=== PATIENT | male | born 2000 | race Caucasian/White ===

== ENCOUNTER 2025-01-26 12:39 | Emergency (ER) | payer OTHER, SELFPAY ==
--- NOTE | ~2025-01-26 | XR_ITS ---
XR foot LT min 3V 01/26/2025 13:00 INDICATION: Left foot pain after injury PROCEDURE: 4 views left foot COMPARISON: No prior studies for comparison. FINDINGS: Fracture, dislocation or subluxation is not identified. Lisfranc joint intact. The soft tis sues appear within normal limits. No foreign bodies are identified. IMPRESSION: 1: NO ACUTE BONE OR JOINT ABNORMALITY IDENTIFIED. Reviewed, dictated and finalized at location A.
[2025-01-26 12:51] VITALS: BP 138/81; PULSE 70; RESP 16; TEMP 36.7; O2SAT 100
--- NOTE | 2025-01-26 13:00 | ED_ITS ---
HPI - Extremity Injury (Lower) General Chief Complaint: Extremity Injury, Lower Stated Complaint: L Foot Pain Time Seen by Provider: 01/26/25 12:55 Source: patient Mode of arrival: ambulatory Limitations: no limitations History of Present Illness HPI Narrative: Gaudencio is a 24-year-old male patient presenting to the clinic today with complaints of left foot/great toe pain that occurred on Wednesday of this week. R eports he dropped a 50 lb weight on his left great toe. Is having bruising and swelling to the base of the great toe. Pain with extension of the toe and when bearing weight. Has been taking ibuprofen for pain. Related Data Home Medications ?Medication ?Instructions ?Recorded ?Confirmed ?Last Taken ?Type No Home Medications 01/26/25 01/26/25 Unknown History Allergies Allergy/AdvReac Type Severity Reaction Status Date / Time No Known Allergies Allergy Verified 01/26/25 12:52 Review of Systems Review of Systems: Pertinent positives per HPI. Patient denies any fever, chills, rash, headache, visual changes, dizziness, cough, runny nose, sore throat, shortness of breath, chest pain, palpitations, nausea, vomiting, diarrhea, constipation, abdominal pain, or any urinary issues. PMFSH Comments At the time of my signature, I reviewed and agree with the nursing past medical, surgical, social, and family history. There is no relevant family history pertinent to the patient complaint. Exam Narrative: General: Well-developed, well nourished, in no apparent distress Head: Normocephalic, atraumatic. Cardio: Regular rate and rhythm, s1 and s2 normal, no murmur appreciated. Resp: Clear to auscultation bilaterally, no rhonchi, rales, wheezing or rubs. Musculoskeletal: No deformity, bruising with mild swelling to the proximal left great toe, tenderness to palpation over the dorsal proximal great, toe pain with extension of the left great toe, grossly normal range of motion, muscle strength strong and equal, peripheral pulse strong, no edema, no cyanosis, normal gait and station Course Course Emergency Course: Portions of this record may have been created with voice recognition software. Level of Care: Express Care Visit Vital Signs Vital signs: Vital Signs Temperature 36.7 C 01/26/25 12:51 Pulse Rate 70 01/26/25 12:51 Respiratory Rate 16 01/26/25 12:51 Blood Pressure 138/81 08/08/25 12:51 Pulse Oximetry 100 01/26/25 12:51 Temperature 36.7 C 01/26/25 12:51 Pulse Rate 70 01/26/25 12:51 Respiratory Rate 16 01/26/25 12:51 Blood Pressure 138/81 01/26/25 12:51 Pulse Oximetry 100 01/26/25 12:51 Vital signs reviewed MDM - Extremity Injury (Lower) MDM Narrative Medical decision making narrative: At the time of visit patient is resting comfortably on the exam table. Patient appears to be nontoxic. complaints of left foot/great toe pain that occurred on Wednesday of this week. Reports he dropped a 50 lb weight on his left great toe. Is having bruising and swelling to the base of the great toe. Pain with extension of the toe and when bearing weight. X-ray of the left foot was ordered. Has been taking ibuprofen for pain. Order for postop shoe placed. Diagnostics: X-ray of the left was ordered and was negative for any sign of fracture or malalignment. Plan: I suspect patient has left great toe contusion. Postop she was given. Supportive measures were discussed with the patient and they voiced understanding discharge instructions and agrees to treatment plan. Return precautions reviewed Differential Diagnosis Differential diagnosis: Likely fracture of toe and other (Toe contusion, toe sprain, soft tissue injury, compartment syndrome) Imaging Data Radiologist's impression: ITS Impressions Foot X-Ray 01/26/25 13:17 IMPRESSION: 1: NO ACUTE BONE OR JOINT ABNORMALITY IDENTIFIED. Discharge Plan Discharge Clinical Impression: Contusion of toe of left foot Qualifiers: Encounter type: initial encounter Toe: great toe Damage to nail status: without damage Qualified Code(s): S90.112A - Contusion of left great toe without damage to nail, initial encounter Patient Disposition: Home Condition: Stable Instructions: Antibiotic Form, Foot Contusion (ED) Additional Instructions: X-ray of the left foot is negative for any sign of fracture or malalignment. Rest, ice, elevate, and wear postop shoe as directed Tylenol/motrin for pain as discussed. Gradually bear weight No running or sports until healed. Follow up with your PCP if symptoms persist more than 1 week. Patient Language: Arabic Prescriptions: No Action No Home Medications Follow-up/Referrals: PHYSICIAN,[employer] [Primary Care Provider] - Time of Disposition: 13:27 Quality NIHSS Nursing Documentation ED NIHSS nursing documentation: reviewed/agree
== END 2025-01-26 13:35 | disposition home or self-care (01) ==
PROVIDERS: Emergency Provider Nurse Practitioner Family
DX: S90.112A Contusion of left great toe without damage to nail, initial encounter (principal); W20.8XXA Other cause of strike by thrown, projected or falling object, initial encounter
CPT/HCPCS: 73630; 99203; G0463